=== PATIENT | female | born 1995 | race African-American/Black ===

== ENCOUNTER 2016-07-16 07:30 | Emergency (ER) | payer MEDICAID ==
[2016-07-16] MEDS ORDERED: BUPIVACAINE HCL 0.5 % INJ/PF 30 ML SDV INJ ONE (08:46)
[2016-07-16] MEDS ORDERED: PENICILLIN V POTASSIUM 500 MG TABLET PO ONE (08:46)
--- NOTE | 2016-07-16 09:32 | ER Document Report ---
HPI - HPI Patient complains to provider of: toothache Pain Level: 5 Context: patient is a 21 year old female who presents to the ED complaining of toothache with onset Sunday, has become more severe over the course of the week. no fevers , tolerating swallowing, no drainage or swelling. no PMh, allergies - CARDIOVASCULAR Cardiovascular: DENIES: Chest pain - REPRODUCTIVE Reproductive: DENIES: : - DERM Skin Color: Normal Past Medical History - Social History Smoking Status: Current Every Day Smoker Chew tobacco use (# tins/day): No Frequency of alcohol use: Occasional Drug Abuse: Marijuana Family History: Reviewed & Not Pertinent Patient has suicidal ideation: No Patient has homicidal ideation: No Renal/ Medical History: Denies: Hx Peritoneal Dialysis Past Surgical History: Reports: Hx Cholecystectomy - Suspects gallstones but is uncertain of surgery that she had performed, Hx Myringotomy - Immunizations Hx Diphtheria, Pertussis, Tetanus Vaccination: Yes - unsure of tetanus Vertical Provider Document - CONSTITUTIONAL Agree With Documented VS: Yes Exam Limitations: No Limitations General Appearance: WD/WN, No Apparent Distress - INFECTION CONTROL TRAVEL OUTSIDE OF THE [place] IN LAST 30 DAYS: No - HEENT HEENT: Atraumatic, Normocephalic. negative: Pharyngeal Exudate, Pharyngeal Tenderness, Pharyngeal Erythema Mouth Diagram: 1 - tenderness over wisdom tooth Notes: no evidence of peritonsillar or retropharyngeal abscess. - NECK Neck: Normal Inspection. negative: Lymphadenopathy-Left, Lymphadenopathy-Right Notes: No evidence of Cj angina - RESPIRATORY Respiratory: Breath Sounds Normal, No Respiratory Distress, Chest Non-Tender O2 Sat by Pulse Oximetry: 99 - CARDIOVASCULAR Cardiovascular: Regular Rate, Regular Rhythm, No Murmur - NEURO Level of Consciousness: Awake, Alert, Appropriate - DERM Integumentary: Warm, Dry, No Rash Course - Re-evaluation Re-evalutation: 07/16/16 14:25 Patient is a 21-year-old female who presents with tooth pain. No evidence of peritonsillar abscess, retropharyngeal abscess, airway obstruction. Patient is seen today with stable and afebrile. We'll discharge home on by mouth antibiotics instruction to follow up with oral surgeon. - Vital Signs Vital signs: Temp Pulse Resp BP Pulse Ox 98.6 F 80 20 116/68 99 07/16/16 07:41 07/16/16 07:41 07/16/16 07:41 07/16/16 07:41 07/16/16 07:41 Discharge - Discharge Clinical Impression: Tooth ache Condition: Good Disposition: HOME, SELF-CARE Additional Instructions: TOOTHACHE: Your pain is due to dental decay. The tooth must be repaired in order for you to feel better. You will, therefore, be referred to a dentist. We do not have dentists on the staff at [facility]. Severe swelling or drainage around a tooth usually means a dental abscess. This also requires evaluation and treatment by the dentist, but antibiotics may be prescribed while awaiting dental treatment. You should be rechecked immediately if you develop major swelling of the face, increasing pain, a lump in the jaw or gums, headache, difficulty swallowing, or fever. ORAL NARCOTIC MEDICATION: You have been given a prescription for pain control. This medication is a narcotic. It's best taken with food, as nausea can result if taken on an empty stomach. Don't operate machinery or drive within six hours of taking this medication. Do not combine this medicine with alcohol, or with any medication which can cause sedation (such as cold tablets or sleeping pills) unless you get permission from the physician. Narcotics tend to cause constipation. If possible, drink plenty of fluids and eat a diet high in fiber and fruits. Please be aware that prescription narcotics also have the potential for abuse. People become addicted to these medications because of the general sense of wellbeing that they induce. This feeling along with a significant reduction in tension, anxiety, and aggression provides a stimulating seductive quality to these drugs. Once your pain is under control, we encourage you to discard your unused narcotics. PENICILLIN V K: You have been given a prescription for Penicillin VK. Your physician has determined that this is the best antibiotic for your condition. Pen VK can be taken with meals, however more of the antibiotic gets into the bloodstream if it's taken on an empty stomach. Penicillin usually has no side effects. However, allergy to penicillins is common. If you have had an allergic reaction to any drug of the penicillin family, you should never take any other penicillin. Notify your doctor at once if you develop hives, itching, swelling, faintness, or shortness of breath. FOLLOW-UP CARE: You have been referred for follow-up care to the dentists listed below. Call the dentists office for an appointment as you were instructed or within the next two days. If you experience worsening or a significant change in your symptoms, notify the physician immediately or return to the Emergency Department at any time for re-evaluation. [facility] [address] [place], [place] F[place] mornings, by appointment [facility] [address] [place] [address] [facility] [address] [facility] [address] [facility] ([facility] [address] [email or web address] [address] [place] [address] Sunday- 8:00am to 5:00 pm Will see [facility] other [facility]. Charges based on income and family size and accepts Medicare, Medicaid, and Insurances Will pull molars [facility] [id number] Hours of Operation 8:00 am - 4:30 pm days The following dental offices accept Medicaid: [facility] Dr. Felder Dr. Zimmerman Dr. Geronimo Dr. Connor Giles Fitzgerald, Raji, and Kellie oral surgery Dr. Hunt ([place]) Dr. Sumner ([place] Howard) [facility] Drs. Arevalo ([place]) Dr. Sahu ([place]) [facility] Dr. Colby ([place]) Drs. Castorena and ([place]) Medicaid Care Line Prescriptions: Oxycodone HCl/Acetaminophen [Percocet 5-325 mg Tablet] 1 - 2 tab PO Q4H PRN #10 tablet PRN Reason: Penicillin V Potassium [Penicillin Vk 500 mg Tablet] 500 mg PO BID #14 tablet
[2016-07-16 09:41] VITALS: BP 111/67
== END 2016-07-16 09:41 | disposition home or self-care (01) ==
LOC: ER 07:30
DX: K08.9 Disorder of teeth and supporting structures, unspecified (principal); F17.200 Nicotine dependence, unspecified, uncomplicated; Z90.49 Acquired absence of other specified parts of digestive tract
CPT/HCPCS: 99282; J3490

== ENCOUNTER 2016-08-15 18:23 | Emergency (ER) | payer MEDICAID ==
--- NOTE | 2016-08-15 19:42 | ER Document Report ---
HPI - HPI Patient complains to provider of: chest pain, right arm pain Onset: This afternoon Onset/Duration: Sudden Quality of pain: Sharp Severity: Severe Pain Level: 4 Context: Patient presents to emergency department with complaints of sharp right-sided chest pain and pain from her right elbow down to her hand. Patient is right- handed. Patient reports the chest pain felt like a slow knife going thru her chest. She reports it comes/goes. Denies hx of CAD. Denies family history of CAD. Denies any vomiting diarrhea. Reports she feels sharp pain and hair right arm that occurred at approximately the same time from her elbow to her wrist. Denies trauma. Denies past medical history of injury to the area. Sitting in the bed calm, no shortness of breath, no distress noted Associated Symptoms: None Exacerbated by: Denies Relieved by: Denies Similar symptoms previously: No Recently seen / treated by doctor: No - REPRODUCTIVE Reproductive: DENIES: : - DERM Skin Color: Normal Past Medical History - General Information source: Patient Last Menstrual Period: 07/29/16 - Social History Smoking Status: Current Every Day Smoker Cigarette use (# per day): Yes Frequency of alcohol use: Occasional Drug Abuse: None Occupation: [employer] Family History: DM - mgm, Hypertension - mgm Patient has suicidal ideation: No Patient has homicidal ideation: No - Medical History Medical History: Negative Renal/ Medical History: Denies: Hx Peritoneal Dialysis Past Surgical History: Reports: Hx Cholecystectomy - Suspects gallstones but is uncertain of surgery that she had performed, Hx Myringotomy - Immunizations Hx Diphtheria, Pertussis, Tetanus Vaccination: Yes - unsure of tetanus Vertical Provider Document - CONSTITUTIONAL Agree With Documented VS: Yes Exam Limitations: No Limitations General Appearance: WD/WN, No Apparent Distress - nontoxic looking - INFECTION CONTROL TRAVEL OUTSIDE OF THE [place] IN LAST 30 DAYS: No - HEENT HEENT: Atraumatic, Normocephalic - NECK Neck: Normal Inspection, Supple. negative: Lymphadenopathy-Left, Lymphadenopathy-Right - RESPIRATORY O2 Sat by Pulse Oximetry: 99 - CARDIOVASCULAR Cardiovascular: Regular Rate - GI/ABDOMEN Gastrointestinal: Abdomen Soft, Abdomen Non-Tender - MUSCULOSKELETAL/EXTREMETIES Musculoskeletal/Extremeties: MAEW, FROM, Tender - +tinel, +phalen test, no erythema, no swelling - NEURO Level of Consciousness: Awake, Alert, Appropriate Motor/Sensory: No Motor Deficit - DERM Integumentary: Warm, Dry Course - Re-evaluation Re-evalutation: 08/15/16 20:02 Patient instructed on pending chest x-ray and EKG. I do not feel like this is anything cardiac but will do EKG to rule out. 08/15/16 21:14 X-ray negative EKG sinus rhythm, will treat for suspected carpal tunnel. Patient instructed to follow-up with primary care provider for further evaluation and recheck - Vital Signs Vital signs: Temp Pulse Resp BP Pulse Ox 98.0 F 70 16 128/81 H 99 08/15/16 19:06 08/15/16 19:06 08/15/16 19:06 08/15/16 19:06 08/15/16 19:06 - Diagnostic Test Radiology reviewed: Image reviewed, Reports reviewed - Diagnostic report text EXAM DESCRIPTION: CHEST PA/LAT COMPLETED DATE/TIME: 08/15/2016 8:09 pm REASON FOR STUDY: chest pain COMPARISON: November 2015 EXAM PARAMETERS: NUMBER OF VIEWS: two views TECHNIQUE: Digital Frontal and Lateral radiographic views of the chest acquired. RADIATION DOSE: NA LIMITATIONS: none FINDINGS: LUNGS AND PLEURA: No opacities, masses or pneumothorax. No pleural effusion. MEDIASTINUM AND HILAR STRUCTURES: No masses or contour abnormalities. HEART AND VASCULAR STRUCTURES: Heart normal size. No evidence for failure. BONES: No acute findings. HARDWARE: None in the chest. OTHER: No other significant finding. IMPRESSION: NO SIGNIFICANT RADIOGRAPHIC FINDING IN THE CHEST. - EKG Interpretation by Me EKG shows normal: Sinus rhythm When compared to previous EKG there are: No significant change Procedures - Immobilization Right Wrist Pre-Proc Neuro Vasc Exam: Normal Immobilizer type: Cock-up Performed by: Other - rn corrections Post-Proc Neuro Vasc Exam: Unchanged from pre-exam Alignment checked and good: Yes Discharge - Discharge Clinical Impression: right lower arm pain, Carpal tunnel syndrome of right wrist, Elevated blood pressure reading Chest pain Qualifiers: Chest pain type: unspecified Qualified Code(s): R07.9 - Chest pain, unspecified Condition: Stable Disposition: HOME, SELF-CARE Instructions: Carpal Tunnel Syndrome ([facility]), Chest Pain of Unclear Cause ([facility]), Temporary Splint ([facility]) Additional Instructions: *You have been evaluated for chest and arm pain, suspect carpal tunnel, elevated blood pressure reading *Take ibuprofen or tylenol as indicated for pain *Follow up with a primary care provider within 3 days for recheck *Wear splint for comfort *Return to ED for worsening condition, changes, needs *Return to ED if not better in 24 hours Monitor your blood pressure. Your blood pressure was elevated today. This may be because you were anxious, in pain or because you need medication. It is important to follow up with your primary care provider for full evaluation. Forms: Elevated Blood Pressure Referrals: FLETCHER LUKE MD [Primary Care Provider] - Follow up in 3-5 days
--- NOTE | 2016-08-15 20:27 | RADIOLOGY REPORT (SQ) ---
EXAM DESCRIPTION: CHEST PA/LAT COMPLETED DATE/TIME: 08/15/2016 8:09 pm REASON FOR STUDY: chest pain COMPARISON: November 2015 EXAM PARAMETERS: NUMBER OF VIEWS: two views TECHNIQUE: Digital Frontal and Lateral radiographic views of the chest acquired. RADIATION DOSE: NA LIMITATIONS: none FINDINGS: LUNGS AND PLEURA: No opacities, masses or pneumothorax. No pleural effusion. MEDIASTINUM AND HILAR STRUCTURES: No masses or contour abnormalities. HEART AND VASCULAR STRUCTURES: Heart normal size. No evidence for failure. BONES: No acute findings. HARDWARE: None in the chest. OTHER: No other significant finding. IMPRESSION: NO SIGNIFICANT RADIOGRAPHIC FINDING IN THE CHEST. TECHNICAL DOCUMENTATION: JOB ID: [id number] [employer]- All Rights Reserved
[2016-08-15 21:30] VITALS: BP 106/70
--- NOTE | 2016-08-16 00:31 | EKG REPORT ---
SEVERITY:- NORMAL ECG - SINUS RHYTHM : Confirmed by: Baldev Plata 16-Aug-2016 00:29:19
== END 2016-08-15 21:31 | disposition home or self-care (01) ==
LOC: ER 18:23
DX: M79.601 Pain in right arm (principal); G56.01 Carpal tunnel syndrome, right upper limb; R07.9 Chest pain, unspecified; R03.0 Elevated blood-pressure reading, without diagnosis of hypertension; F17.210 Nicotine dependence, cigarettes, uncomplicated; Z90.49 Acquired absence of other specified parts of digestive tract
CPT/HCPCS: 93005; 99285; 71020; 93010; L3984

== ENCOUNTER 2017-12-28 11:26 | Emergency (ER) | payer BC, MEDICAID ==
[2017-12-28 11:46] VITALS: BP 104/68
[2017-12-28 12:50] LABS: APPEARANCE,URINE SLIGHTLY-CLOUDY; BILIRUBIN,URINE NEGATIVE (NEGATIVE); COLOR,URINE YELLOW; GLUCOSE, URINE NEGATIVE (NEGATIVE); KETONES,URINE NEGATIVE (NEGATIVE); LEUKOCYTE ESTERASE,URINE NEGATIVE (NEGATIVE); NITRITE,URINE NEGATIVE (NEGATIVE); PROTEIN,URINE NEGATIVE (NEGATIVE); URINE SPECIFIC GRAVITY 1.021
[2017-12-28] MEDS ORDERED: AZITHROMYCIN 250 MG TABLET PO ONE (13:05)
[2017-12-28] MEDS ORDERED: CEFTRIAXONE INJ 250 MG VIAL IM ONE (13:06)
[2017-12-28 13:15] LABS: RBCS (WET MOUNT) NO RBCS SEEN; T.VAGINALIS (WET MOUNT) NO TRICHOMONAS SEEN; WBCS (WET MOUNT) 1+ WBCS SEEN; YEAST (WET MOUNT) NO YEAST SEEN
--- NOTE | 2017-12-28 14:10 | ER Document Report ---
ED General - General Chief Complaint: Pelvic Pain Stated Complaint: PELVIC PAIN Time Seen by Provider: 12/28/17 12:47 Mode of Arrival: Ambulatory Information source: Patient Notes: 22-year-old female presents the emergency department with a complaint of pelvic pain for the last year. Patient states that she is followed up with her [employer] [facility] multiple times. No explanation for her pain has been found. Patient describes it as an aching sensation in the suprapubic area. She denies any radiation of the pain. She denies any alleviating or exacerbating factors. Patient denies a history of ovarian cysts, endometriosis. Patient states that she has had an associated abnormal vaginal discharge. She states that the discharge is white/yellow in color and has a foul odor. She states that she has been having this discharge over the last 6 months. She denies any increased urgency, increased frequency, dysuria, hematuria. TRAVEL OUTSIDE OF THE [place] IN LAST 30 DAYS: No - HPI Onset: Other - 1 year Quality of pain: Achy Severity: None Associated symptoms: None Exacerbated by: Denies Relieved by: Denies Similar symptoms previously: Yes Recently seen / treated by doctor: Yes - Related Data Allergies/Adverse Reactions: No Known Allergies Allergy (Verified 12/28/17 11:30) Past Medical History - Social History Smoking Status: Current Every Day Smoker Chew tobacco use (# tins/day): No Frequency of alcohol use: Occasional Drug Abuse: Marijuana Family History: DM - mgm, Hypertension - mgm Patient has suicidal ideation: No Patient has homicidal ideation: No Renal/ Medical History: Denies: Hx Peritoneal Dialysis Past Surgical History: Reports: Hx Cholecystectomy - Suspects gallstones but is uncertain of surgery that she had performed, Hx Myringotomy - Immunizations Hx Diphtheria, Pertussis, Tetanus Vaccination: Yes - unsure of tetanus Review of Systems - Review of Systems Constitutional: No symptoms reported EENT: No symptoms reported Cardiovascular: No symptoms reported Respiratory: No symptoms reported Gastrointestinal: Abdominal pain Genitourinary: Discharge Female Genitourinary: Vaginal discharge, Vaginal odor Musculoskeletal: No symptoms reported Skin: No symptoms reported Hematologic/Lymphatic: No symptoms reported Neurological/Psychological: No symptoms reported -: Yes All other systems reviewed and negative Physical Exam - Vital signs Vitals: Temp Pulse Resp BP Pulse Ox 98.7 F 83 16 104/68 99 12/28/17 11:44 12/28/17 11:44 12/28/17 11:44 12/28/17 11:44 12/28/17 11:44 - Notes Notes: PHYSICAL EXAMINATION: GENERAL: Well-appearing, well-nourished and in no acute distress. HEAD: Atraumatic, normocephalic. EYES: Pupils equal round and reactive to light, extraocular movements intact, conjunctiva are normal. ENT: Nares patent, oropharynx clear without exudates. Moist mucous membranes. NECK: Normal range of motion, supple without lymphadenopathy LUNGS: Breath sounds clear to auscultation bilaterally and equal. No wheezes rales or rhonchi. HEART: Regular rate and rhythm without murmurs ABDOMEN: Soft, nontender, nondistended abdomen. No guarding, no rebound. No masses appreciated. Female : White vaginal discharge noted. Cervical loss is closed. No vaginal bleeding. No cervical motion tenderness. No ovarian tenderness. No ovarian masses appreciated. Musculoskeletal: Normal range of motion, no pitting or edema. No cyanosis. NEUROLOGICAL: Cranial nerves grossly intact. Normal speech, normal gait. Normal sensory, motor exams PSYCH: Normal mood, normal affect. SKIN: Warm, Dry, normal turgor, no rashes or lesions noted. Course - Re-evaluation Re-evalutation: 12/28/17 14:54 Left ovarian cyst appreciated on pelvic ultrasound. Patient request to be treated for sexually transmitted diseases. Patient was given Rocephin and azithromycin in the emergency department. I discussed the results with the patient. I instructed her to follow-up with her primary care physician this week. I also told her to take [id number] medication for symptom relief and to return to the emergency department for worsening symptoms. Patient is agreeable with plan of care. - Vital Signs Vital signs: Temp Pulse Resp BP Pulse Ox 98.7 F 83 16 104/68 99 12/28/17 11:44 12/28/17 11:44 12/28/17 11:44 12/28/17 11:44 12/28/17 11:44 - Laboratory Laboratory results interpreted by me: 12/28/17 12:20 Urine Urobilinogen 2.0 H Urine Ascorbic Acid 40 H Discharge - Discharge Clinical Impression: Ovarian cyst Qualifiers: Laterality: left Qualified Code(s): N83.202 - Unspecified ovarian cyst, left side Condition: Good Disposition: HOME, SELF-CARE Instructions: Pelvic Pain ([facility]), Ovarian Cyst ([facility]) Referrals: FLETCHER LUKE MD [Primary Care Provider] - Follow up as needed BEENA WATERS MD [ACTIVE STAFF] - Follow up as needed
[2017-12-28 14:42] LABS: CHLAM PCR NOT DETECTED (NOT DETECT); GON PCR NOT DETECTED (NOT DETECT)
--- NOTE | 2017-12-28 14:50 | RADIOLOGY REPORT (SQ) ---
EXAM DESCRIPTION: U/S NON OB PEL TV W/DOPPLER COMPLETED DATE/TIME: 12/28/2017 2:39 pm REASON FOR STUDY: pelvic pain LMP 12/25/2017 COMPARISON: None. TECHNIQUE: Dynamic and static grayscale images acquired of the pelvis via transvaginal approach and recorded on PACS. Additional selected color Doppler and spectral images recorded. LIMITATIONS: None. FINDINGS: UTERUS: Contour normal. No mass. ENDOMETRIAL STRIPE: No focal or generalized thickening. No masses. CERVIX: 2 cm. No nabothian cysts. RIGHT OVARY AND DOPPLER: Normal size. No worrisome masses. Normal arterial vascular flow without evid ence for torsion. LEFT OVARY AND DOPPLER: Normal size. No solid masses. 16 mm cyst. Normal arterial vascular flow wit hout evidence for torsion. FREE FLUID: None noted. OTHER: No other significant finding. MEASUREMENTS: UTERUS: 5.9 x 2.3 x 4.2 cm. ENDOMETRIAL STRIPE: 1.3 mm. RIGHT OVARY: 3.4 x 1.7 x 3.2 cm. LEFT OVARY: 2.4 x 1.8 x 3.5 cm. IMPRESSION: Small left ovarian cyst almost certainly benign. No imaging follow-up is required. No other abnormality is appreciated. TECHNICAL DOCUMENTATION: JOB ID: [id number] [employer]- All Rights Reserved Rev-08/03 Reading location - IP/workstation name: [email or web address]
== END 2017-12-28 15:04 | disposition home or self-care (01) ==
LOC: ER 11:26
DX: N83.202 Unspecified ovarian cyst, left side (principal); R10.2 Pelvic and perineal pain; N89.8 Other specified noninflammatory disorders of vagina; F17.200 Nicotine dependence, unspecified, uncomplicated; F12.10 Cannabis abuse, uncomplicated; Z90.49 Acquired absence of other specified parts of digestive tract
CPT/HCPCS: 99284; 96372; 87210; 81025; 81001; 87491; 87591; 76830; 93976; Q0144; J0696

== ENCOUNTER 2018-02-15 15:44 | Emergency (ER) | payer MEDICAID ==
[2018-02-15] MEDS ORDERED: KETOROLAC TROMETHAMINE 10 MG TABLET PO ONE (17:35)
[2018-02-15 18:24] LABS: ABSOLUTE BASOPHILS # (AUTO) 0.1 10^3/uL (0.0-0.2); ABSOLUTE EOSINOPHILS # (AUTO) 0.7 10^3/uL (0.0-0.6); ABSOLUTE LYMPHOCYTES (AUTO) 3.6 10^3/uL (0.5-4.7); ABSOLUTE MONOCYTES (AUTO) 0.6 10^3/uL (0.1-1.4); BASOPHILS % (AUTO) 0.8 % (0-2); EOSINOPHILS % (AUTO) 7.3 % (0-6); HEMATOCRIT 39.8 % (36.0-47.0); HEMOGLOBIN 13.5 g/dL (12.0-15.5); LYMPHOCYTES % (AUTO) 40.4 % (13-45); MEAN CORPUSCULAR HEMOGLOBIN 29.8 pg (27.0-33.4); MEAN CORPUSCULAR VOLUME 88 fl (80-97); MONOCYTES % (AUTO) 6.7 % (3-13); PLATELET COUNT 351 10^3/uL (150-450); RED BLOOD COUNT 4.55 10^6/uL (3.72-5.28); RED CELL DISTRIBUTION WIDTH 13.2 % (11.5-14.0); SEGMENTED NEUTROPHILS % (AUTO) 44.8 % (42-78); TOTAL CELLS COUNTED % (AUTO) 100 %
--- NOTE | 2018-02-15 19:59 | ER Document Report ---
ED General - General Chief Complaint: Vag Bleeding, +preg <12wks Stated Complaint: VAGINAL BLEEDING Time Seen by Provider: 02/15/18 17:34 Notes: Chief complaint: Vaginal bleeding History of complain:( obtained from----patient) 23 years old female presents today after having vaginal bleeding. Brought content of it. She states she had a. Ended on the of this month. Again had another bleed today. One episode. Currently not bleeding. Lower abdominal cramp. No fever chills dysuria frequency urgency. Denies any prior vaginal discharge. Onset: Sudden Duration: One day Severity: Mild Quality: Crampy Context: Cycle Exacerbating factor and relieving factors: None REVIEW OF SYSTEMS: CONSTITUTIONAL : Denies fever, chills, or sweats. Denies recent illness. EENT: Denies eye, ear, throat, or mouth pain or symptoms. Denies nasal or sinus congestion or discharge. Denies throat, tongue, or mouth swelling or difficulty swallowing. CARDIOVASCULAR: Denies chest pain. Denies palpitations or racing or irregular heart beat. Denies ankle edema. RESPIRATORY: Denies cough, cold, or chest congestion. Denies shortness of breath, difficulty breathing, or wheezing. GASTROINTESTINAL: Denies distention. Denies nausea, vomiting, or diarrhea. Denies blood in vomitus, stools, or per rectum. Denies black, tarry stools. Denies constipation. GENITOURINARY: Denies difficulty urinating, painful urination, burning, frequency, blood in urine, or discharge. FEMALE GENITOURINARY: Denies vaginal bleeding, heavy or abnormal periods, irregular periods. Denies vaginal discharge or odor. MUSCULOSKELETAL: Denies back or neck pain or stiffness. Denies joint pain or swelling. SKIN: Denies rash, lesions or sores. HEMATOLOGIC : Denies easy bruising or bleeding. LYMPHATIC: Denies swollen, enlarged glands. NEUROLOGICAL: Denies confusion or altered mental status. Denies passing out or loss of consciousness. Denies dizziness or lightheadedness. Denies headache. Denies weakness or paralysis or loss of use of either side. Denies problems with gait or speech. Denies sensory loss, numbness, or tingling. Denies seizures. PSYCHIATRIC: Denies anxiety or stress. Denies depression, suicidal ideation, or homicidal ideation. ALL OTHER SYSTEMS REVIEWED AND NEGATIVE. PHYSICAL EXAMINATION: GENERAL: Well-appearing, well-nourished and in no acute distress. Not seems to be in any acute distress HEAD: Atraumatic, normocephalic. EYES: Pupils equal round and reactive to light, extraocular movements intact, conjunctiva are normal. ENT: Nares patent, oropharynx clear without exudates. Moist mucous membranes. NECK: Normal range of motion, supple without lymphadenopathy LUNGS: Breath sounds clear to auscultation bilaterally and equal. No wheezes rales or rhonchi. HEART: Regular rate and rhythm without murmurs ABDOMEN: Soft, nontender, nondistended abdomen. No guarding, no rebound. No masses appreciated. Examination of genitals-deferred Musculoskeletal: Normal range of motion, no pitting or edema. No cyanosis. NEUROLOGICAL: Cranial nerves grossly intact. Normal speech, normal gait. Normal sensory, motor exams PSYCH: Normal mood, normal affect. SKIN: Warm, Dry, normal turgor, no rashes or lesions noted. Dictation was performed using [employer] voice recognition software TRAVEL OUTSIDE OF THE [place] IN LAST 30 DAYS: No - HPI Notes: Dictated - Related Data Allergies/Adverse Reactions: No Known Allergies Allergy (Verified 02/15/18 17:31) Past Medical History - General Information source: Patient - Social History Smoking Status: Current Every Day Smoker Frequency of alcohol use: Rare Drug Abuse: Marijuana Lives with: Family Family History: Reviewed & Not Pertinent, DM - mgm, Hypertension - mgm Patient has suicidal ideation: No Patient has homicidal ideation: No Renal/ Medical History: Denies: Hx Peritoneal Dialysis Past Surgical History: Reports: Hx Cholecystectomy - Suspects gallstones but is uncertain of surgery that she had performed, Hx Myringotomy - Immunizations Hx Diphtheria, Pertussis, Tetanus Vaccination: Yes - unsure of tetanus Review of Systems - Review of Systems Notes: Dictated Physical Exam - Vital signs Vitals: Temp Pulse Resp BP Pulse Ox 98.7 F 84 14 116/80 100 02/15/18 15:48 02/15/18 15:48 02/15/18 15:48 02/15/18 15:48 02/15/18 15:48 - Notes Notes: Dictated Course - Vital Signs Vital signs: Temp Pulse Resp BP Pulse Ox 98.7 F 84 14 116/80 100 02/15/18 15:48 02/15/18 15:48 02/15/18 15:48 02/15/18 15:48 02/15/18 15:48 - Laboratory Result Diagrams: 02/15/18 18:11 Laboratory results interpreted by me: 02/15/18 18:11 Eosinophils % 7.3 H Absolute Eosinophils 0.7 H Discharge - Discharge Clinical Impression: Dysmenorrhea Condition: Fair Disposition: HOME, SELF-CARE Instructions: Dysmenorrhea ([facility]) Prescriptions: Ketorolac Tromethamine [Toradol 10 mg Tablet] 10 mg PO Q8HP PRN #14 tablet PRN Reason: Referrals: FLETCHER LUKE MD [Primary Care Provider] - Follow up as needed
[2018-02-15 20:08] VITALS: BP 114/67
== END 2018-02-15 20:07 | disposition home or self-care (01) ==
LOC: ER 15:44
DX: N94.6 Dysmenorrhea, unspecified (principal); F17.200 Nicotine dependence, unspecified, uncomplicated; Z90.49 Acquired absence of other specified parts of digestive tract
CPT/HCPCS: 99284; 36415; 84702; 85025; J3490